=== PATIENT | male | born 1950 | race Caucasian/White ===

== ENCOUNTER 2021-01-17 00:20 | Emergency (ER) | payer OTHER ==
[2021-01-17] MEDS ORDERED: Ketorolac Tromethamine 30 MG/ML VIAL ONE (00:51)
[2021-01-17] MEDS ORDERED: Acetaminophen 500 MG TAB ONE (00:52)
[2021-01-17] MEDS ORDERED: Clindamycin 150 MG CAP ONE (01:09)
== END 2021-01-17 02:32 ==
LOC: CSHERS 00:20
DX: L03.312 Cellulitis of back [any part except buttock and flank] (principal); E11.9 Type 2 diabetes mellitus without complications; J44.9 Chronic obstructive pulmonary disease, unspecified; Z79.4 Long term (current) use of insulin
CPT/HCPCS: 72072; 96372; J1885

== ENCOUNTER 2022-02-12 14:31 | Emergency (ER) | payer OTHER ==
[~2022-02-12 14:31] MED LIST: Iopamidol 300 61% 100 ML VIAL FS ONE
[2022-02-12] MEDS ORDERED: Morphine 4 MG/ML VIAL ONE ×2 (15:10→17:17)
[2022-02-12] MEDS ORDERED: Ondansetron PF 4 MG/2 ML Vial ONE (15:10)
[2022-02-12 15:17] LABS: Hemoglobin 15.3 g/dL (13.5-17.5); MDiff Complete? YES; Mean Corpuscular HGB CONC 35.3 g/dL (32.0-36.0); Mean Corpuscular Volume 84.9 fl (81.2-95.1); Mean Platelet Volume 9.1 fl (7.4-10.4); Platelet Count 345 10x3/uL (150-450); RBC Distribution Width 12.7 % (11.5-14.5); White Blood Cell (WBC) Count 23.8 10x3/uL (3.5-10.5)
[2022-02-12 15:24] LABS: INR-International Normal Ratio 0.9; Prothrombin Time 10.2 sec (9.5-12.1)
[2022-02-12 15:27] LABS: ALT (SGPT) 16 U/L (8-55); AST (SGOT) 13 U/L (5-34); Albumin 3.8 g/dL (3.4-4.8); Alkaline Phosphatase 117 U/L (40-110); Anion Gap 18 mmol/L (10-20); BUN (Urea Nitrogen) 13 mg/dL (8.4-25.7); Bilirubin, Total 0.6 mg/dL (0.2-1.2); Calc. Creatinine Clearance 0 mL/min (70-130); Calcium 8.6 mg/dL (7.8-10.44); Carbon Dioxide 22 mmol/L (23-31); Chloride 96 mmol/L (98-107); Globulin 3.4 g/dL (2.4-3.5); Glucose 466 mg/dL (80-115); Potassium 4.3 mmol/L (3.5-5.1); Protein, Total 7.2 g/dL (5.8-8.1); Sodium 132 mmol/L (136-145)
[2022-02-12 16:11] LABS: Lymphocytes 5 % (21-51); Monocytes 3 % (0-10); Neutrophil 92 % (42-75); Platelet Morphology Comment Appears Adequate
[2022-02-12 16:12] LABS: RBC Morphology Normal
[2022-02-12 17:09] LABS: SARS-CoV-2 NAA Rapid Test Not Detected (NotDetected)
[2022-02-12 17:26] LABS: Bilirubin Neg (Negative); Blood, Urine Negative (Negative); Clarity Clear (Clear); Glucose, Urine (Dipstick) >=1000 mg/dL (Negative); Ketone, Urine 50 mg/dL (Negative); Leukocyte Negative (Negative); Nitrite Negative (Negative); Protein, Urine (Dipstick) Negative (Neg-Trace); Specific Gravity, Urine 1.005 (1.002-1.036)
[2022-02-12] MEDS ORDERED: Fentanyl 100 MCG/2 ML VIAL ONE (19:01)
[2022-02-12] MEDS ORDERED: Lidocaine 1% w/Epinephrine 1:100K 20 ML VIAL ONE (19:01)
== END 2022-02-12 19:46 ==
LOC: EEVIPCON 14:31 → CSHERS 14:31
DX: L02.212 Cutaneous abscess of back [any part, except buttock and flank] (principal); D72.829 Elevated white blood cell count, unspecified; M54.6 Pain in thoracic spine; E11.9 Type 2 diabetes mellitus without complications; J44.9 Chronic obstructive pulmonary disease, unspecified; W18.30XA Fall on same level, unspecified, initial encounter; Z20.822 Contact with and (suspected) exposure to COVID-19; Z79.4 Long term (current) use of insulin; Z79.899 Other long term (current) drug therapy
CPT/HCPCS: 10060; 72130; 72132; 80053; 81003; 83605; 85025; 85610; 85730; 86140; 96374; 96375; 96376; J2270; J2405; J3010; Q9967; U0002